=== PATIENT | male | born 1975 | race Two or more races ===

== ENCOUNTER 2020-09-08 13:15 | Inpatient (IN) | payer OTHER ==
[~2020-09-08] VITALS: Ht 182.9 cm; Wt 160.9 kg
--- NOTE | 2020-09-08 13:26 | NUR ---
covid swabbed walked to lab
[2020-09-08] MEDS ORDERED: CEFTRIAXONE PMX 1GM/50ML 50 ML IVPB ONE (13:30)
[2020-09-08] MEDS ORDERED: DEXAMETHASONE 4 MG/ML, 1ML IV ONE (13:30)
[2020-09-08] MEDS ORDERED: DOXYCYCLINE 100MG TABLET PO ONE (13:30)
[2020-09-08] MEDS ORDERED: ACETAMINOPHEN 500 MG TABLET PO ONE (13:30)
--- NOTE | 2020-09-08 13:51 | NUR ---
xr at bedside
[2020-09-08] MEDS ORDERED: ACETAMINOPHEN 500 MG TABLET ONE (13:55)
[2020-09-08] MEDS ORDERED: CEFTRIAXONE PMX 1GM/50ML 50 ML ONE (13:55)
[2020-09-08] MEDS ORDERED: DEXAMETHASONE 4 MG/ML, 1ML ONE (13:55)
[2020-09-08] MEDS ORDERED: DOXYCYCLINE 100MG TABLET ONE (13:56)
[2020-09-08 14:03] LABS: BASOPHILS % (AUTO) 1 % (0-1); EOSINOPHILS % (AUTO) 0 % (1-7); LYMPHOCYTES % (AUTO) 23 % (22-44); MEAN CORPUSCULAR HEMOGLOBIN 27.6 pg (27.5-34.5); MEAN CORPUSCULAR HGB CONC 33.2 g/dL (33.2-36.2); MEAN PLATELET VOLUME 7.3 fL (7.4-10.4); MONOCYTES % (AUTO) 8 % (2-9); NEUTROPHILS % (AUTO) 69 % (42-75); PLATELET COUNT 257 x10^3/uL (130-400); RED BLOOD COUNT 5.74 x10^6/uL (4.38-5.82); RED CELL DISTRIBUTION WIDTH 14.5 % (9.4-14.8)
[2020-09-08 14:07] LABS: MD NO
[2020-09-08 14:14] LABS: ALANINE AMINOTRANSFERASE 37 U/L (12-78); ALBUMIN 2.8 g/dL (3.4-5.0); ANION GAP 7 mmol/L (5-15); CALCIUM 8.3 mg/dL (8.5-10.1); CHLORIDE 105 mmol/L (98-107); CREATININE 0.88 mg/dL (0.7-1.3)
[2020-09-08 14:21] LABS: ALKALINE PHOSPHATASE 72 U/L (45-117); BILIRUBIN,TOTAL 0.5 mg/dL (0.2-1.0); D-DIMER (DIC) 0.71 ug/mlFEU (0.00-0.52); PROTIME 10.7 Seconds (9.6-11.5); TOTAL PROTEIN 7.4 g/dL (6.4-8.2)
--- NOTE | 2020-09-08 14:56 | NUR ---
PT SLEEPING IN BED. VSS.
[2020-09-08] MEDS ORDERED: SODIUM CHLORIDE FLUSH 10ML SYR IVF PRN (15:00)
[2020-09-08] MEDS ORDERED: ASCORBIC ACID 500 MG TABLET ONE (16:58)
[2020-09-08] MEDS ORDERED: ENOXAPARIN 60 MG/0.6 ML ONE (16:58)
[2020-09-08] MEDS ORDERED: BUTALB/APAP/CAFFEINE 50MG/325MG/40MG PO PRN (17:00)
[2020-09-08] MEDS ORDERED: BACLOFEN 10 MG TABLET PO PRN (17:00)
[2020-09-08] MEDS ORDERED: ENALAPRILAT 1.25 MG/ML, 2ML IVPush PRN (17:00)
[2020-09-08] MEDS ORDERED: ONDANSETRON ODT 4 MG PO PRN (17:00)
[2020-09-08] MEDS ORDERED: ONDANSETRON 2MG/ML, 2ML IVPush PRN (17:00)
[2020-09-08] MEDS ORDERED: GUAIFENESIN/DM 200-20MG, 10ML UDC PO PRN (17:00)
[2020-09-08] MEDS ORDERED: KETOROLAC 30 MG/1 ML IV PRN (17:00)
[2020-09-08] MEDS: ENOXAPARIN 30 MG/0.3 ML SQ SCH (17:01)
[2020-09-08] MEDS: ASCORBIC ACID 500 MG TABLET PO SCH (17:01)
[2020-09-08] MEDS ORDERED: REMDESIVIR 200 MG in SODIUM CHLORIDE 0.9% 250 ML IVPB ONE (17:30)
--- NOTE | 2020-09-08 17:57 | NUR ---
PT GIVEN MEAL TRAY
--- NOTE | 2020-09-08 19:00 | NUR ---
REPORT FROM GRAYSON ASSUMED CARE OF PT AT THIS TIME
--- NOTE | 2020-09-08 19:52 | NUR ---
Sujey keith in ED - 09/08/20 at 1954 by LENNOX REMDESIVIRNO RUNNING AT THIS TIME 200 ML LEFT IN BAG TURNED ON AT THIS TIME
--- NOTE | 2020-09-08 19:54 | NUR ---
REMDESIVIR NOT RUNNING AT THIS TIME WITH 200 IN BAG TURNED ON AT THIS TIME
[2020-09-08] MEDS ORDERED: MELATONIN 5 MG TABLET ONE (21:03)
[2020-09-08] MEDS ORDERED: methylPREDNISolone SOD SUCC 125 MG/2 ML ONE (21:03)
[2020-09-08] MEDS: methylPREDNISolone SOD SUCC 125 MG/2 ML IV SCH (21:14)
[2020-09-08] MEDS: MELATONIN 5 MG TABLET PO SCH (21:14)
--- NOTE | 2020-09-08 21:31 | NUR ---
pt placed on hospital bed for comfort awaiting hospital room
[2020-09-08] MEDS ORDERED: PLEASE ENTER ALLERGIES MC SCH (23:30)
[2020-09-09 05:19] LABS: CALCIUM 8.8 mg/dL (8.5-10.1); CHLORIDE 104 mmol/L (98-107)
[2020-09-09 05:22] LABS: BASOPHILS % (AUTO) 0 % (0-1); EOSINOPHILS % (AUTO) 0 % (1-7); LYMPHOCYTES % (AUTO) 19 % (22-44); MEAN CORPUSCULAR HGB CONC 33.5 g/dL (33.2-36.2); MEAN PLATELET VOLUME 7.6 fL (7.4-10.4); MONOCYTES % (AUTO) 6 % (2-9); NEUTROPHILS % (AUTO) 75 % (42-75); PLATELET COUNT 305 x10^3/uL (130-400); RED BLOOD COUNT 5.79 x10^6/uL (4.38-5.82); RED CELL DISTRIBUTION WIDTH 14.7 % (9.4-14.8)
[2020-09-09 05:33] LABS: ALANINE AMINOTRANSFERASE 35 U/L (12-78); ALBUMIN 2.6 g/dL (3.4-5.0); ALKALINE PHOSPHATASE 68 U/L (45-117); ANION GAP 5 mmol/L (5-15); BILIRUBIN,TOTAL 0.4 mg/dL (0.2-1.0); CREATININE 0.87 mg/dL (0.7-1.3); TOTAL PROTEIN 7.6 g/dL (6.4-8.2)
[2020-09-09 05:36] LABS: MD NO
[2020-09-09] MEDS ORDERED: ENOXAPARIN 60 MG/0.6 ML ONE (06:10)
[2020-09-09] MEDS: ENOXAPARIN 30 MG/0.3 ML SQ SCH ×2 (06:15→17:56)
--- NOTE | 2020-09-09 07:10 | NUR ---
BEDSIDE REPORT FROM MALGORZAAT
[2020-09-09] MEDS: CHOLECALCIFEROL 5,000u TAB PO SCH (09:23)
[2020-09-09] MEDS: ASCORBIC ACID 500 MG TABLET PO SCH ×2 (09:23→17:55)
[2020-09-09] MEDS: SENNA/DOCUSATE TABLET PO SCH (09:23)
[2020-09-09] MEDS: ZINC SULFATE 220 MG CAPSULE PO SCH (09:23)
[2020-09-09] MEDS: MULTIVITS,STRESS FORMULA 1 TABLET PO SCH (09:24)
[2020-09-09] MEDS: methylPREDNISolone SOD SUCC 125 MG/2 ML IV SCH ×2 (09:24→20:36)
[2020-09-09 09:36] VITALS: BP 155/94
[2020-09-09 09:50] VITALS: BP 155/94
[2020-09-09] MEDS: FLUTICASONE/VILANTEROL 100-25MCG/INH INH SCH (11:25)
[2020-09-09 14:54] VITALS: BP 129/88
[2020-09-09] MEDS ORDERED: REMDESIVIR 100 MG in SODIUM CHLORIDE 0.9% 250 ML IVPB SCH (17:30)
[2020-09-09 20:00] VITALS: BP 121/74
[2020-09-09] MEDS: MELATONIN 5 MG TABLET PO SCH (20:36)
[2020-09-10 01:13] VITALS: BP 117/74
[2020-09-10] MEDS: ENOXAPARIN 30 MG/0.3 ML SQ SCH (05:46)
[2020-09-10 06:18] LABS: ALBUMIN 2.6 g/dL (3.4-5.0); CALCIUM 8.8 mg/dL (8.5-10.1); CHLORIDE 105 mmol/L (98-107)
[2020-09-10 06:24] LABS: ALANINE AMINOTRANSFERASE 29 U/L (12-78); ALKALINE PHOSPHATASE 61 U/L (45-117); ANION GAP 3 mmol/L (5-15); BILIRUBIN,TOTAL 0.4 mg/dL (0.2-1.0); CREATININE 1.07 mg/dL (0.7-1.3); TOTAL PROTEIN 7.4 g/dL (6.4-8.2)
[2020-09-10 08:15] VITALS: BP 124/78
[2020-09-10] MEDS: ASCORBIC ACID 500 MG TABLET PO SCH (10:00)
[2020-09-10] MEDS: FLUTICASONE/VILANTEROL 100-25MCG/INH INH SCH (10:00)
[2020-09-10] MEDS: SENNA/DOCUSATE TABLET PO SCH (10:00)
[2020-09-10] MEDS: ZINC SULFATE 220 MG CAPSULE PO SCH (10:00)
[2020-09-10] MEDS: CHOLECALCIFEROL 5,000u TAB PO SCH (10:00)
[2020-09-10] MEDS: methylPREDNISolone SOD SUCC 125 MG/2 ML IV SCH (10:01)
[2020-09-10] MEDS: MULTIVITS,STRESS FORMULA 1 TABLET PO SCH (10:01)
[2020-09-10] MEDS ORDERED: CHOL500045 PO (11:14)
[2020-09-10] MEDS ORDERED: FLUT1AER INH (11:14)
[2020-09-10] MEDS ORDERED: ASCO500T9 PO (11:14)
== END 2020-09-10 12:01 | disposition left against medical advice (07) | DRG 177 ==
LOC: ED 15:03 → EDIP 09-09 04:45 → 4EST 09-09 08:42
PROVIDERS: ADMIT Emergency Medicine; ATTEND Family Medicine
DX: U07.1 COVID-19 (principal); J12.89 Other viral pneumonia; Z68.42 Body mass index [BMI] 45.0-49.9, adult; E66.01 Morbid (severe) obesity due to excess calories; G47.00 Insomnia, unspecified; Z20.828 Contact with and (suspected) exposure to other viral communicable diseases; Z53.29 Procedure and treatment not carried out because of patient's decision for other reasons
CPT/HCPCS: 36415; 71045; 80053; 82728; 83605; 83615; 83735; 84145; 84443; 85025; 85049; 85379; 85384; 85610; 85730; 86140; 87040; 93005; 96365; 96375; 96376; 99285; G0378; J0696; J1100; J1650; J2930; J7050; U0003